=== PATIENT | female | born 1965 | race Caucasian/White ===

== ENCOUNTER 2018-02-03 13:09 | Observation (INO) | payer OTHER ==
[~2018-02-03] VITALS: Ht 144.8 cm; Wt 67.4 kg
[2018-02-03 13:48] LABS: APPEARANCE CLEAR ((CLEAR)); BILIRUBIN NEGATIVE; BLOOD NEGATIVE; COLOR YELLOW ((YELLOW)); GLUCOSE (STRIP) NEGATIVE; KETONES NEGATIVE; LEUKOCYTES NEGATIVE; NITRITE NEGATIVE; PROTEIN (STRIP) 30; SPECIFIC GRAVITY 1.012 (1.000-1.030); UCUL ADDED? NO; UROBILINOGEN 0.2 MG/DL (0.2-1.0)
[2018-02-03 14:06] LABS: AMPHETAMINE NEGATIVE (500 ng/mL); BARBITURATES NEGATIVE (200 ng/mL); BENZODIAZEPINES NEGATIVE (150 ng/mL); BUPRENORPHINE NEGATIVE (10 ng/mL); COCAINE NEGATIVE (150 ng/mL); METHADONE NEGATIVE (200 ng/mL); METHAMPHETAMINE NEGATIVE (500 ng/mL); OPIATES (MORPHINE) NEGATIVE (100 ng/mL); OXYCODONE NEGATIVE (100 ng/mL); PHENCYCLIDINE NEGATIVE (25 ng/mL); PROPOXYPHENE NEGATIVE (300 ng/mL); THC CANNABINOIDS NEGATIVE (50 ng/mL); TRICYCLIC ANTIDEPRESSANTS NEGATIVE (300 ng/mL)
[2018-02-03 14:17] LABS: BASOPHIL (%) 0.3 % (0-1); EOSINOPHIL (%) 0.2 % (0-5); HEMATOCRIT 46.4 % (36.0-46.0); HEMOGLOBIN 15.2 G/DL (11.9-15.5); IMMATURE GRANULOCYTE (%) 0.4 % (0.0-0.7); LYMPHOCYTE (%) 11.5 % (15-42); LYMPHOCYTE COUNT 1.2 K/uL (1.0-2.8); MCH 26.5 PG (29.0-34.0); MCHC 32.8 G/DL (30.0-36.0); MONOCYTE (%) 3.8 % (3-12); MONOCYTE COUNT 0.4 K/uL (0-0.8); NEUTROPHIL (%) 83.8 % (45-76); NEUTROPHIL COUNT 9.1 K/uL (1.8-6.4); PLATELET COUNT 281 K/uL (156-360); RBC DIS.WIDTH-CV 14.4 % (11.8-14.6); RBC DIS.WIDTH-SD 42.1 % (39-53); RED BLOOD COUNT 5.73 M/uL (3.80-5.20); WHITE BLOOD COUNT 10.8 K/uL (4.1-10.2)
[2018-02-03 14:30] LABS: PTT 31.9 SEC (25-37)
[2018-02-03 14:32] LABS: CHLORIDE 107 mEq/L (99-109); POTASSIUM 3.6 mEq/L (3.7-5.4); SODIUM 143 mEq/L (136-147)
[2018-02-03 14:33] LABS: GLUCOSE 123 mg/dL (70-99)
[2018-02-03 14:37] LABS: CREATININE 0.8 mg/dL (0.6-1.3)
[2018-02-03 14:38] LABS: UREA NITROGEN (BUN) 10 mg/dL (9-23)
[2018-02-03 14:39] LABS: GFR ESTIMATE (CALCULATED) > 59 mL/min/
[2018-02-03 14:40] LABS: TROP-I INTERPRETATION NEGATIVE; TROPONIN-I 0.01 ng/mL (0.0-0.30)
[2018-02-03 16:08] LABS: SERUM ETHYL ALCOHOL < 10 mg/dL
[2018-02-03 16:52] LABS: ACETAMINOPHEN (TYLENOL) < 10 mcg/mL (10-30)
[2018-02-03] MEDS ORDERED: ADVIL200 MG PO (16:59)
[2018-02-03] MEDS ORDERED: VENTOLIN HFA18 GM IH (16:59)
[2018-02-03 19:43] VITALS: BP 135/72
[2018-02-03 23:47] VITALS: BP 113/70
[2018-02-04 03:24] VITALS: BP 119/58
[2018-02-04 07:56] VITALS: BP 127/68
[2018-02-04 11:20] VITALS: BP 119/58
== END 2018-02-04 15:14 | disposition home or self-care (01) ==
LOC: EME 13:09 → EDOF 17:03 → 4SOUTH 17:03 → EDOF 17:03 → ENRESERV 17:12 → 4SOUTH 19:36
PROVIDERS: Emergency Medicine
DX: T45.0X1A Poisoning by antiallergic and antiemetic drugs, accidental (unintentional), initial encounter (principal); G35 Multiple sclerosis; G25.81 Restless legs syndrome; G47.00 Insomnia, unspecified; R42 Dizziness and giddiness; R41.0 Disorientation, unspecified; Z90.49 Acquired absence of other specified parts of digestive tract; Z90.710 Acquired absence of both cervix and uterus; F17.210 Nicotine dependence, cigarettes, uncomplicated; Z82.49 Family history of ischemic heart disease and other diseases of the circulatory system; Z83.3 Family history of diabetes mellitus; Z88.0 Allergy status to penicillin
CPT/HCPCS: 70450; 71045; 80048; 81003; 84484; 85025; 85610; 85730; 87040; 93005; 99281; 99285; G0378; G0480; G8978 GP CJ; G8979 GP CH; J7030